=== PATIENT | male | born 1960 | race Caucasian/White ===

== ENCOUNTER 2016-08-13 15:39 | Observation (INO) | payer SELFPAY ==
[2016-08-13 16:57] LABS: ABSOLUTE BASOPHILS # (AUTO) 0.1 10^3/uL (0.0-0.2); ABSOLUTE EOSINOPHILS # (AUTO) 0.3 10^3/uL (0.0-0.6); ABSOLUTE MONOCYTES (AUTO) 0.6 10^3/uL (0.1-1.4); BASOPHILS % (AUTO) 1.1 % (0-2); EOSINOPHILS % (AUTO) 3.1 % (0-6); HEMATOCRIT 48.3 % (37.9-51.0); HEMOGLOBIN 16.7 g/dL (13.5-17.0); HGB HCT DIFFERENCE 1.8; MEAN CORPUSCULAR HEMOGLOBIN 30.2 pg (27.0-33.4); MEAN CORPUSCULAR HGB CONC 34.6 g/dL (32.0-36.0); MEAN CORPUSCULAR VOLUME 87 fl (80-97); MONOCYTES % (AUTO) 6.7 % (3-13); RED BLOOD COUNT 5.55 10^6/uL (4.35-5.55); RED CELL DISTRIBUTION WIDTH 13.2 % (11.5-14.0); SEGMENTED NEUTROPHILS % (AUTO) 67.1 % (42-78); WHITE BLOOD COUNT 8.9 10^3/uL (4.0-10.5)
[2016-08-13 17:02] LABS: ALANINE AMINOTRANSFERASE 32 U/L (21-72); ALBUMIN 4.2 g/dL (3.5-5.0); ALKALINE PHOSPHATASE 85 U/L (38-126); ANION GAP 13 (5-19); ASPARTATE AMINO TRANSFERASE 23 U/L (17-59); BILIRUBIN,DIRECT 0.4 mg/dL (0.0-0.4); BILIRUBIN,TOTAL 0.6 mg/dL (0.2-1.3); BLOOD UREA NITROGEN 15 mg/dL (7-20); CALCIUM 9.7 mg/dL (8.4-10.2); CARBON DIOXIDE 26 mmol/L (22-30); CHLORIDE 106 mmol/L (98-107); CREATINE KINASE 106 U/L (55-170); CREATININE RESULT 0.97 mg/dL (0.52-1.25); GLUCOSE 119 mg/dL (75-110); POTASSIUM 4.2 mmol/L (3.6-5.0); SODIUM 144.6 mmol/L (137-145); TOTAL PROTEIN 7.2 g/dL (6.3-8.2)
[2016-08-13 17:14] LABS: CREATINE KINASE MB 0.95 ng/mL (<4.55)
[2016-08-13 17:15] LABS: TROPONIN I < 0.012 ng/mL
[2016-08-13] MEDS ORDERED: ASPIRIN 81 MG TABLET, CHEWABLE ONE (17:17)
[2016-08-13] MEDS ORDERED: ASPIRIN 81 MG TABLET, CHEWABLE PO ONE (17:19)
--- NOTE | 2016-08-13 18:00 | ER Document Report ---
ED General - General Chief Complaint: Chest Pressure Stated Complaint: WEAKNESS Mode of Arrival: Ambulatory Information source: Patient Notes: 55 yr old male hx of [place], 3 stents in 2004 who has not been on any medication since then presents with complaints of chest pressure . Pain started yesterday, lasting an hour, pt noted the pain worsned with exertion. pt then had chest pressure this morning lasting 3 hours. Pt denies any fevers or chills. TRAVEL OUTSIDE OF THE [place] IN LAST 30 DAYS: No - HPI Onset: Yesterday Onset/Duration: Intermittent, Waxing and waning Quality of pain: Pressure Severity: Mild Pain Level: 1 Associated symptoms: Chest pain, Shortness of breath Exacerbated by: Walking Relieved by: Denies Similar symptoms previously: Yes Recently seen / treated by doctor: Yes - Related Data Allergies/Adverse Reactions: Penicillins Allergy (Verified 08/13/16 16:15) Past Medical History - Social History Smoking Status: Current Every Day Smoker Cigarette use (# per day): Yes Chew tobacco use (# tins/day): No Smoking Education Provided: No Frequency of alcohol use: Rare Drug Abuse: None Family History: CAD - Past Medical History Cardiac Medical History: Reports: Hx Heart Attack Renal/ Medical History: Denies: Hx Peritoneal Dialysis Past Surgical History: Reports: Hx Appendectomy - Immunizations Hx Diphtheria, Pertussis, Tetanus Vaccination: Yes Review of Systems - Review of Systems Notes: REVIEW OF SYSTEMS: CONSTITUTIONAL : Denies fever, chills, or sweats. Denies recent illness. EENT: Denies eye, ear, throat, or mouth pain or symptoms. Denies nasal or sinus congestion or discharge. Denies throat, tongue, or mouth swelling or difficulty swallowing. CARDIOVASCULAR: Admits to chest pain RESPIRATORY: Denies cough, cold, or chest congestion. Denies shortness of breath, difficulty breathing, or wheezing. GASTROINTESTINAL: Denies abdominal pain or distention. Denies nausea, vomiting , or diarrhea. Denies blood in vomitus, stools, or per rectum. Denies black, tarry stools. Denies constipation. GENITOURINARY: Denies difficulty urinating, painful urination, burning, frequency, blood in urine, or discharge. MUSCULOSKELETAL: Denies back or neck pain or stiffness. Denies joint pain or swelling. SKIN: Denies rash, lesions or sores. HEMATOLOGIC : Denies easy bruising or bleeding. LYMPHATIC: Denies swollen, enlarged glands. NEUROLOGICAL: Denies confusion or altered mental status. Denies passing out or loss of consciousness. Denies dizziness or lightheadedness. Denies headache. Denies weakness or paralysis or loss of use of either side. Denies problems with gait or speech. Denies sensory loss, numbness, or tingling. Denies seizures. PSYCHIATRIC: Denies anxiety or stress. Denies depression, suicidal ideation, or homicidal ideation. ALL OTHER SYSTEMS REVIEWED AND NEGATIVE. Dictation was performed using vocaltap voice recognition software PHYSICAL EXAMINATION: GENERAL: Well-appearing, well-nourished and in no acute distress. HEAD: Atraumatic, normocephalic. EYES: Pupils equal round and reactive to light, extraocular movements intact, sclera anicteric, conjunctiva are normal. ENT: Nares patent, oropharynx clear without exudates. Moist mucous membranes. NECK: Normal range of motion, supple without lymphadenopathy LUNGS: Breath sounds clear to auscultation bilaterally and equal. No wheezes rales or rhonchi. HEART: Regular rate and rhythm without murmurs ABDOMEN: Soft, nontender, nondistended abdomen. No guarding, no rebound. No masses appreciated. Musculoskeletal: Normal range of motion, no pitting or edema. No cyanosis. NEUROLOGICAL: Cranial nerves grossly intact. Normal speech, normal gait. Normal sensory, motor exams PSYCH: Normal mood, normal affect. SKIN: Warm, Dry, normal turgor, no rashes or lesions noted. Physical Exam - Vital signs Vitals: Temp Pulse Resp BP Pulse Ox 98.3 F 101 H 16 171/77 H 94 08/13/16 15:47 08/13/16 15:47 08/13/16 15:47 08/13/16 15:47 08/13/16 15:47 Course - Re-evaluation Re-evalutation: 08/13/16 19:52 pt took 2 baby aspirin prior ot arrival 2 more given here, pt first set ekg labs are negative. will have acs rule out observation. currently patient pain free - Vital Signs Vital signs: Temp Pulse Resp BP Pulse Ox 98.0 F 101 H 19 115/50 L 94 08/13/16 19:42 08/13/16 15:47 08/13/16 19:02 08/13/16 19:02 08/13/16 19:02 - Laboratory Result Diagrams: 08/13/16 16:10 08/13/16 16:10 Laboratory results interpreted by me: 08/13/16 16:10 Glucose 119 H Discharge - Discharge Clinical Impression: Chest pain Qualifiers: Chest pain type: unspecified Qualified Code(s): R07.9 - Chest pain, unspecified HTN (hypertension) Qualifiers: Hypertension type: essential hypertension Qualified Code(s): I10 - Essential ( primary) hypertension Admitting Provider: Hospitalist Unit Admitted: Telemetry
--- NOTE | 2016-08-13 18:10 | EKG REPORT ---
SEVERITY:- ABNORMAL ECG - SINUS RHYTHM RBBB AND LAFB : Confirmed by: Horace Garcia MD 13-Aug-2016 18:09:23
--- NOTE | 2016-08-13 18:53 | PDOC H&P ---
History of Present Illness Admission Date/PCP: 08/13/16 18:36 Patient complains of: Chest pain History of Present Illness: SOREN ANN is a 55 year old male who has a history of coronary artery disease with stents placed in 2004. Since that time he has not seen a physician or take any medications. Patient reports that today he was washing his car and he began developed substernal chest pressure that radiated from his xiphoid area up to his neck. He had some associated nausea and diaphoresis. Reports it became worse as he walked towards the house. He reported that it lasted approximately 4 hours but has improved. The patient denies any palpitations or tachycardia associated with this. He also has had complaints of pain that radiated to his left arm. He also has had some numbness on the anterior aspect of his forearm. Patient reports that the pain when it was at its worse was 5 out of 10. He is currently pain-free. He does smoke 1 pack per day and does have a family history of heart disease but does not have any history of hypertension and denies ever having cholesterol problems but has not had it checked in over 10 years. Patient reports that his chest discomfort was improved when he sat down. Past Medical History Cardiac Medical History: Reports: Myocardial Infarction Pulmonary Medical History: Reports: None EENT Medical History: Reports: None Neurological Medical History: Reports: None Endocrine Medical History: Reports: None Renal/ Medical History: Reports: None Malignancy Medical History: Reports: None GI Medical History: Reports: None Musculoskeltal Medical History: Reports: None Skin Medical History: Reports: None Psychiatric Medical History: Reports: None Traumatic Medical History: Reports: None Hematology: Reports: None Infectious Medical History: Reports: None Past Surgical History Past Surgical History: Reports: Appendectomy Social History Information Source: Patient Lives with: Family Smoking Status: Current Every Day Smoker Frequency of Alcohol Use: Occasional Hx Recreational Drug Use: No Drugs: None - Advance Directive Resuscitation Status: Full Code Family History Family History: Father at age 83 and had diabetes. Mother at age 63 and had coronary disease, hypertension, and diabetes. Parental Family History Reviewed: Yes Children Family History Reviewed: No Sibling(s) Family History Reviewed.: No Medication/Allergy Allergies/Adverse Reactions: Penicillins Allergy (Verified 08/13/16 16:15) Review of Systems Constitutional: ABSENT: chills, fever(s), headache(s), weight gain, weight loss Eyes: ABSENT: visual disturbances Ears: ABSENT: hearing changes Cardiovascular: PRESENT: chest pain, dyspnea on exertion. ABSENT: edema, orthropnea, palpitations Respiratory: ABSENT: cough, hemoptysis Gastrointestinal: ABSENT: abdominal pain, constipation, diarrhea, hematemesis, hematochezia, nausea, vomiting Genitourinary: ABSENT: dysuria, hematuria Musculoskeletal: ABSENT: joint swelling Integumentary: PRESENT: diaphoresis. ABSENT: rash, wounds Neurological: PRESENT: numbness - Mild numbness of the left arm and left leg. He also has sciatica type pain associated with this in his left leg.. ABSENT: abnormal gait, abnormal speech, confusion, dizziness, focal weakness, syncope Psychiatric: ABSENT: anxiety, depression Endocrine: ABSENT: cold intolerance, heat intolerance, polydipsia, polyuria Hematologic/Lymphatic: ABSENT: easy bleeding, easy bruising Physical Exam Vital Signs: Temp Pulse Resp BP Pulse Ox 98.3 F 101 H 20 141/69 H 96 08/13/16 15:47 08/13/16 15:47 08/13/16 17:02 08/13/16 17:02 08/13/16 17:02 General appearance: PRESENT: no acute distress, well-developed, well-nourished Head exam: PRESENT: atraumatic, normocephalic Eye exam: PRESENT: conjunctiva pink, EOMI, PERRLA. ABSENT: scleral icterus Ear exam: PRESENT: normal external ear exam Mouth exam: PRESENT: moist, tongue midline Neck exam: ABSENT: carotid bruit, JVD, lymphadenopathy, thyromegaly Respiratory exam: PRESENT: clear to auscultation chanell. ABSENT: rales, rhonchi, wheezes Cardiovascular exam: PRESENT: RRR. ABSENT: diastolic murmur, rubs, systolic murmur Pulses: PRESENT: normal dorsalis pedis pul Vascular exam: PRESENT: normal capillary refill GI/Abdominal exam: PRESENT: normal bowel sounds, soft. ABSENT: distended, guarding, mass, organolmegaly, rebound, tenderness Rectal exam: PRESENT: deferred Extremities exam: ABSENT: calf tenderness, clubbing, pedal edema Neurological exam: PRESENT: alert, awake, oriented to person, oriented to place , oriented to time, oriented to situation, CN II-XII grossly intact. ABSENT: motor sensory deficit Psychiatric exam: PRESENT: appropriate affect, normal mood Skin exam: PRESENT: dry, intact, warm. ABSENT: cyanosis, rash Results Impressions: Chest X-Ray 08/13/16 16:32 IMPRESSION: NO ACUTE RADIOGRAPHIC FINDING IN THE CHEST. Assessment & Plan - Diagnosis (1) Chest pain Qualifiers: Chest pain type: unspecified Qualified Code(s): R07.9 - Chest pain, unspecified Is this a current diagnosis for this admission?: YesPlan: Patient has a history of coronary artery disease as well as risk factors of smoking and family history. He reports his blood pressures have been normal. He is unaware of what his cholesterol is. We will monitor on telemetry and check serial cardiac enzymes. The patient has already been given an aspirin. He is currently pain-free. The patient reports that the last time he saw physician was in 2004. He was bending over and working on his car and this could possibly be related to acid reflux. The patient also has some left arm numbness which sounds more like a radicular symptom from his cervical spine and most likely is not related to the chest pain. Patient reports the last time he saw intrusion analyst was Dr. Esparza at [place]. (2) Coronary artery disease Is this a current diagnosis for this admission?: YesPlan: Will start an aspirin. If the patient has abnormal cardiac enzymes we will start on a beta suleman and Lovenox. My suspicion is low that this is related to his heart. We'll check a fasting cholesterol in the morning. (3) HTN (hypertension) Qualifiers: Hypertension type: essential hypertension Qualified Code(s): I10 - Essential (primary) hypertension Is this a current diagnosis for this admission?: YesPlan: Patient reports that in the past had elevated blood pressures but has not seen a physician in over 10 years. Will monitor his blood pressure overnight. - Time Time Spent: 30 to 50 Minutes - Plan Summary Plan Summary: The patient will be admitted as an observation.
[2016-08-13 22:51] LABS: CREATINE KINASE MB 1.33 ng/mL (<4.55)
[2016-08-13 22:56] LABS: TROPONIN I 0.186 ng/mL
[2016-08-13] MEDS ORDERED: ATORVASTATIN CALCIUM 80 MG TABLET PO ONE (23:05)
[2016-08-13] MEDS ORDERED: CLOPIDOGREL BISULFATE 300 MG TABLET PO ONE (23:05)
[2016-08-13] MEDS ORDERED: ENOXAPARIN SODIUM INJ 120 MG/0.8 ML DISP.SYRIN SUBCUT ONE (23:15)
[2016-08-13] MEDS ORDERED: CLOPIDOGREL BISULFATE 300 MG TABLET ONE (23:32)
--- NOTE | 2016-08-13 23:58 | PDOC TRANSFER SUMMARY ---
General Admission Date/PCP: 08/13/16 18:40 Resuscitation Status: Full Code - Transfer Diagnosis (1) Acute coronary syndrome Is this a current diagnosis for this admission?: YesDiagnosis Summary: Patient admitted through the emergency room 4 hours after the onset of chest pressure while washing his car the pain originating the xiphoid process radiating to the jaw to left arm associated with nausea and diaphoresis. His his EKG shows sinus rhythm with a right bundle branch block and left anterior fascicular block without old for comparison. His troponin was originally below detected level but currently 15 times higher at 0.18, creatinine of 0.9, platelets at 226. He is currently pain-free and is ordered 115 mg of Lovenox, 80 mg Lipitor and 300 of Plavix. Heart rate is 65 blood pressure of 144/68 oxygen saturation 100% on 2 L, stable for transport to tertiary care and consideration of cardiac catheterization. (2) Tobacco dependence Is this a current diagnosis for this admission?: YesDiagnosis Summary: Tobacco Dependence patient received tobacco cessation counseling and offered nicotine replacement options (3) Chest pain Is this a current diagnosis for this admission?: YesDiagnosis Summary: Please see #1 (4) Coronary artery disease Is this a current diagnosis for this admission?: YesDiagnosis Summary: Patient states stent was placed in unknown left-sided artery approximate [address] Esparza at [place], patient requests transfer to [place]. (5) HTN (hypertension) Is this a current diagnosis for this admission?: YesDiagnosis Summary: Vasotec IV when necessary - Transfer Medications Home Medications: No Home Medications 08/13/16 Transfer Medications: Current Medications Aspirin (Ecotrin 81 Mg Ec Tablet) 81 mg PO DAILY CARMEN Stop: 09/13/16 09:59 Enoxaparin Sodium (Lovenox Inj 120 Mg/0.8 Ml Disp.Syrin) 115 mg SUBCUT Q12 CARMEN Stop: 09/13/16 09:59 Sodium Chloride (Saline Flush 2.5 Ml Monoject Prefil Syrin) 2.5 ml IV Q8 CARMEN Stop: 09/12/16 21:59 Last Admin: 08/13/16 21:18 Dose: 2.5 ml - Allergies Allergies/Adverse Reactions: Penicillins Allergy (Verified 08/13/16 16:15) Hospital Course Hospital Course: Patient admitted through the emergency room 4 hours after the onset of chest pressure while washing his car the pain originating the xiphoid process radiating to the jaw to left arm associated with nausea and diaphoresis. His his EKG shows sinus rhythm with a right bundle branch block and left anterior fascicular block without old for comparison. His troponin was originally below detected level but currently 15 times higher at 0.18, creatinine of 0.9, platelets at 226. He is currently pain-free and is ordered 115 mg of Lovenox, 80 mg Lipitor and 300 of Plavix. Heart rate is 65 blood pressure of 144/78 setting 100% on 2 L, stable for transport to tertiary care and consideration of cardiac catheterization. Physical Exam Vital Signs: Temp Pulse Resp BP Pulse Ox 98.0 F 65 18 142/66 H 98 08/13/16 21:33 08/13/16 21:33 08/13/16 21:33 08/13/16 21:33 08/13/16 21:33 General appearance: PRESENT: no acute distress, well-developed, well-nourished Head exam: PRESENT: atraumatic, normocephalic Eye exam: PRESENT: conjunctiva pink, EOMI, PERRLA. ABSENT: scleral icterus Ear exam: PRESENT: normal external ear exam Mouth exam: PRESENT: moist, tongue midline Neck exam: ABSENT: carotid bruit, JVD, lymphadenopathy, thyromegaly Respiratory exam: PRESENT: clear to auscultation chanell. ABSENT: rales, rhonchi, wheezes Cardiovascular exam: PRESENT: RRR. ABSENT: diastolic murmur, rubs, systolic murmur Pulses: PRESENT: normal dorsalis pedis pul Vascular exam: PRESENT: normal capillary refill GI/Abdominal exam: PRESENT: normal bowel sounds, soft. ABSENT: distended, guarding, mass, organolmegaly, rebound, tenderness Rectal exam: PRESENT: deferred Extremities exam: PRESENT: full ROM. ABSENT: calf tenderness, clubbing, pedal edema Neurological exam: PRESENT: alert, awake, oriented to person, oriented to place , oriented to time, oriented to situation, CN II-XII grossly intact. ABSENT: motor sensory deficit Psychiatric exam: PRESENT: appropriate affect, normal mood. ABSENT: homicidal ideation, suicidal ideation Skin exam: PRESENT: dry, intact, warm. ABSENT: cyanosis, rash Results Laboratory Results: 08/13/16 08/13/16 22:12 22:12 Creatine Kinase 80 CK-MB (CK-2) 1.33 Troponin I 0.186 Impressions: Chest X-Ray 08/13/16 16:32 IMPRESSION: NO ACUTE RADIOGRAPHIC FINDING IN THE CHEST. Plan Discharge Plan: Patient admitted through the emergency room 4 hours after the onset of chest pressure while washing his car the pain originating the xiphoid process radiating to the jaw to left arm associated with nausea and diaphoresis. His his EKG shows sinus rhythm with a right bundle branch block and left anterior fascicular block without old for comparison. His troponin was originally below detected level but currently 15 times higher at 0.18, creatinine of 0.9, platelets at 226. He is currently pain-free and is ordered 115 mg of Lovenox, 80 mg Lipitor and 300 of Plavix. Heart rate is 65 blood pressure of 144/78 setting 100% on 2 L, stable for transport to tertiary care and consideration of cardiac catheterization. Patient graciously accepted by Dr Dickens at [facility] in [place]. Time Spent: Less than 30 Minutes
[2016-08-14 00:05] VITALS: BP 139/69
--- NOTE | 2016-08-14 09:10 | EKG REPORT ---
SEVERITY:- ABNORMAL ECG - SINUS RHYTHM RBBB AND LAFB : Confirmed by: Horace Garcia MD 14-Aug-2016 09:09:54
[2016-08-14] MEDS ORDERED: ENOXAPARIN SODIUM INJ 120 MG/0.8 ML DISP.SYRIN SUBCUT SCH (10:00)
[2016-08-14] MEDS ORDERED: ASPIRIN 81 MG TABLET, ENT COATED PO SCH (10:00)
== END 2016-08-14 01:50 | disposition short-term general hospital (02) ==
LOC: ER 15:39 → UNDOADMOB 18:36 → EH 18:36 → 5 20:12
PROVIDERS: ADMIT Internal Medicine; ATTEND Internal Medicine
DX: I24.9 Acute ischemic heart disease, unspecified (principal); F17.200 Nicotine dependence, unspecified, uncomplicated; I25.10 Atherosclerotic heart disease of native coronary artery without angina pectoris; I10 Essential (primary) hypertension; R20.0 Anesthesia of skin; M79.605 Pain in left leg; I25.2 Old myocardial infarction; F17.210 Nicotine dependence, cigarettes, uncomplicated; Z95.5 Presence of coronary angioplasty implant and graft; Z90.49 Acquired absence of other specified parts of digestive tract; Z82.49 Family history of ischemic heart disease and other diseases of the circulatory system
CPT/HCPCS: 36415; 71010; 80053; 82550; 82553; 84484; 85025; 93005; 93010; 99285; G0378; J1650; J3490